=== PATIENT | male | born 1960 | race Caucasian/White ===

== ENCOUNTER → 2017-04-24 | Outpatient (CLI) | payer MEDICAID ==
[~2017-04-24] MED LIST: FLEXERIL10 MG PO; IBU-8800 MG PO; LISINOPRIL 20MG20 MG PO; LORTAB 5/500 501 TAB PO; MOTRIN600 MG PO; NAPROSYN500 M1 PO; PREDNISONE 20MG20 MG PO; SEPTRA DS 800 M1 TAB PO; VICODIN 5/500 T1 TAB PO; VOLTAREN75 MG PO
--- NOTE | 2017-04-24 10:53 | RADIOLOGY REPORT PS360 ---
EXAM: Barium swallow/esophagram. INDICATION: Dysphasia with hoarseness ORDERING PHYSICIAN: Nataliia Rodriguez APRN PATIENT AGE: 56 years COMPARISON: None TECHNIQUE: In the upright position the patient was observed to swallow barium in both the AP and lateral view. The cervical esophagus was examined under fluoroscopy with images obtained. The patient was then placed prone in the right anterior oblique position and was observed to swallow barium with Valsalva technique . FLUOROSCOPY TIME: 1 minute FINDINGS: There was no evidence of aspiration. There was normal peristalsis. No filling defects or mucosal abnormalities. No masses or strictures. IMPRESSION: Negative barium swallow.
--- NOTE | 2017-04-24 17:08 | RADIOLOGY REPORT PS360 ---
US THYROID HISTORY: ESOPHAGEAL DYSPHAGIA ORDERING PHYSICIAN: Nataliia Rodriguez APRN PATIENT AGE: 56 years COMPARISON: None FINDINGS: Right lobe: 4.5 x 1.7 x 2.1 cm. No discrete nodule evident Left lobe: 4.2 x 1.5 x 1.7 cm.. There is a 6 x 5 mm area of slight decreased echogenicity along the posterior aspect of the lower pole on the left and could be due to parathyroid gland versus artifact. Isthmus: Mildly thickened at millimeters. IMPRESSION: 1. Mildly enlarged thyroid gland. No discrete thyroid nodules evident 2. Probable parathyroid gland on the left.
== END ==
LOC: RAD 04-19 09:00
DX: R13.14 Dysphagia, pharyngoesophageal phase (principal)